=== PATIENT | female | born 1990 | race African-American/Black ===

== ENCOUNTER 2017-07-03 19:25 | Emergency (ER) | payer MEDICAID ==
[~2017-07-03] VITALS: Ht 162.6 cm; Wt 77.1 kg
[~2017-07-03 19:25] MED LIST: EDTA; IBUPROFEN 600600 M1 PO; MIRENA1 EACH; PHENERGAN 25 MG25 M1 PO
[2017-07-03] MEDS ORDERED: PRENATAL PLUS-1 EACH PO (19:44)
[2017-07-03 20:05] LABS: URINE BILIRUBIN NEGATIVE (Negative); URINE BLOOD NEGATIVE (Negative); URINE CLARITY CLEAR; URINE COLOR YELLOW; URINE GLUCOSE-RANDOM* NEGATIVE (Negative); URINE KETONES NEGATIVE (Negative); URINE LEUKOCYTES-REFLEX NEGATIVE (Negative); URINE NITRITE-REFLEX NEGATIVE (Negative); URINE PROTEIN (DIPSTICK) NEGATIVE (Negative); URINE UROBILINOGEN 0.2 E.U./dl (0.2-1.0)
[2017-07-03 20:24] LABS: ABSOLUTE NEUTROPHILS 6.4 thou/uL (1.4-8.2); BASOPHILS 0.3 % (0.0-2.0); EOSINOPHILS 3.8 % (0.0-3.0); HEMATOCRIT 30.6 % (37.0-47.0); HEMOGLOBIN 10.5 gm/dL (12.0-15.0); LYMPHOCYTES 24.8 % (24.0-44.0); MCH 33.9 pg (26.0-34.0); MCHC 34.4 g/dL (28.0-37.0); MCV 98.5 fL (80.0-100.0); MONOCYTES 9.9 % (1.0-8.0); PLATELET COUNT 318 thou/uL (150-400); POLYS 61.2 % (36.0-66.0); RBC 3.11 mil/uL (4.20-5.00); RDW 12.8 % (10.5-14.5); WBC 10.5 thou/uL (4.0-11.0)
[2017-07-03 20:34] LABS: ANION GAP 9 mmol/L (7-16); BUN 14 mg/dL (7-18); CALCIUM 9.3 mg/dL (8.5-10.1); CHLORIDE 103 mmol/L (98-107); CO2 26 mmol/L (21-32); CREATININE 0.6 mg/dL (0.6-1.0); GLUCOSE 74 mg/dL (74-106); POTASSIUM 4.1 mmol/L (3.5-5.1); SODIUM 138 mmol/L (136-145)
[2017-07-03 20:40] LABS: ALBUMIN 2.8 g/dL (3.4-5.0); DIRECT BILIRUBIN < 0.1 mg/dL (<0.1-0.3); LIPASE 137 U/L (73-393); SGOT 14 U/L (15-37); SGPT 15 U/L (30-65); TOTAL BILIRUBIN 0.1 mg/dL (<0.1-1.0); TOTAL PROTEIN 6.6 g/dL (6.4-8.2)
[2017-07-03] MEDS ORDERED: REGLAN 5 MG TAB5 MG PO (21:34)
== END 2017-07-03 21:46 | disposition home or self-care (01) ==
LOC: ER 19:25
PROVIDERS: Emergency Medicine
DX: O21.9 Vomiting of pregnancy, unspecified (principal); O26.891 Other specified pregnancy related conditions, first trimester; R10.11 Right upper quadrant pain; Z3A.01 Less than 8 weeks gestation of pregnancy